=== PATIENT | female | born 1945 | race Caucasian/White ===

== ENCOUNTER 2017-01-23 08:08 | Emergency (ER) | payer MEDICARE, OTHER ==
[~2017-01-23] VITALS: Ht 160 cm; Wt 65.5 kg
[~2017-01-23 08:08] MED LIST: AMOX500C2 PO; BENA10TA48 PO; BENA5TAB2 PO; IBUP-1542 PO; LEVO112T57 PO; PRED50TA PO
[2017-01-23 08:15] VITALS: Ht 160 cm; Wt 65.5 kg
--- NOTE | 2017-01-23 08:59 | ERD ---
ER Documentation Chief Complaint Chief Complaint SORE THROAT WITH RT EARACHE HPI 71-year-old female with history of hypertension and hypothyroidism, presents to the emergency department complaining of 3 days with progressive sore throat, associated with subjective fever and right ear pain. The patient has not taking any medication at this time, denies dysphagia, odynophagia, cough or shortness of breath. ROS All systems reviewed and are negative except as per history of present illness. Medications Home Meds Active Scripts Ibuprofen* (Motrin*) 400 Mg Tab, 400 MG PO Q8, #30 TAB Prov:BLANQUITA BRUNNER MD 01/23/17 Amoxicillin* (Amoxicillin*) 500 Mg Cap, 500 MG PO TID for 7 Days, CAP Prov:BLANQUITA BRUNNER MD 01/23/17 Benazepril Hcl* (Benazepril Hcl*) 5 Mg Tablet, 5 MG PO DAILY, #30 TAB Prov:DOMONIQUE HANNON PA-C 08/24/15 Levothyroxine Sodium* (Levothyroxine Sodium*) 112 Mcg Tablet, 112 MCG PO BEFORE BREAKFAST, #30 TAB Prov:DOMONIQUE HANNON PA-C 08/24/15 Prednisone* (Prednisone*) 50 Mg Tablet, 50 MG PO DAILY for 5 Days, TAB Prov:DOMONIQUE HANNON PA-C 08/24/15 Amoxicillin* (Amoxicillin*) 500 Mg Cap, 500 MG PO BID for 7 Days, CAP Prov:DOMONIQUE HANNON PA-C 08/24/15 Ibuprofen* (Motrin*) 600 Mg Tab, 600 MG PO Q6H Y for PAIN AND OR ELEVATED TEMP, #30 Prov:DOMONIQUE HANNON PA-C 09/25/14 Reported Medications Levothyroxine Sodium* (Levothyroxine Sodium*) 112 Mcg Tablet, 112 MCG PO DAILY 10/13/11 Benazepril Hcl* (Benazepril Hcl*) 10 Mg Tablet, 10 MG PO DAILY 10/13/11 Allergies Allergies: Coded Allergies: No Known Allergies (Verified Allergy, Unknown, 12/10/13) PMhx/Soc History of Surgery: No Anesthesia Reaction: No Hx Neurological Disorder: No Hx Respiratory Disorders: No Hx Psychiatric Problems: No Hx Miscellaneous Medical Probl: Yes (hypothyroidism) Hx Alcohol Use: No Hx Substance Use: No Hx Tobacco Use: No Physical Exam Vitals Vital Signs Date Time Temp Pulse Resp B/P Pulse Ox O2 Delivery O2 Flow Rate FiO2 01/23/17 08:15 98.5 92 16 148/74 97 Physical Exam Const: [] Head: Atraumatic Eyes: Normal Conjunctiva ENT: Erythematous oropharynx, with exudate. Right ear with a tympanic membrane erythematous and mild middle ear effusion Neck: Full range of motion..~ No meningismus. Resp: Clear to auscultation bilaterally Cardio: Regular rate and rhythm, no murmurs Skin: No petechiae or rashes Back: No midline or flank tenderness Procedures/MDM 71-year-old female with history of hypertension and hypothyroidism presents with progressive worsening of a sore throat. Differential diagnosis includes viral pharyngitis, bacterial pharyngitis, pharyngeal abscesses. Physical examination and clinical presentation consistent most likely with bacterial pharyngitis. The patient will be discharged home with a prescription for amoxicillin for 7 days and ibuprofen. The patient was advised to follow-up with her primary doctor in 2-4 days and return to the emergency department for worsening of symptoms Departure Diagnosis: Primary Impression: Acute suppurative pharyngitis Condition: Stable Additional Instructions: Muchas [facility] para [facility]enkins servicio. Esperamos que en jenkins visita a la bam de emergencia jenkins problema medico haya sido solucionado y que se sienta mucho mejor. Para estar seguros que jenkins mejoria sigue en proceso, le pedimos el favor de hacer andrew maegan de seguimiento medico con jenkins doctor primario en los proximos 2-4 king. Lleve con usted estos documentos y las medicinas recetadas. Si areli sintomas empeoran y no puede agnes a jenkins doctor, por favor regrese a bam de emergencia. ALCOCER-BLANQUITA WARD MD Jan 23, 2017 08:59
[2017-01-23] MEDS ORDERED: IBUP400T22 PO (09:01)
[2017-01-23] MEDS ORDERED: AMOX500C2 PO (09:01)
== END 2017-01-23 09:30 | disposition home or self-care (01) ==
LOC: FTE 08:08
DX: J02.9 Acute pharyngitis, unspecified (principal); I10 Essential (primary) hypertension; E03.9 Hypothyroidism, unspecified
CPT/HCPCS: 99283

== ENCOUNTER 2017-11-28 09:45 | Emergency (ER) | END 2017-11-28 12:35 | disposition home or self-care (01) ==